=== PATIENT | female | born 1940 | race Caucasian/White ===

== ENCOUNTER 2020-08-11 15:47 | Emergency (ER) | payer OTHER, MEDICARE ==
[~2020-08-11 15:47] MED LIST: ACETAMINOPHEN325 MG PO; ADVIL200 MG PO; ALTACE10 MG PO; AMBIEN5 MG PO; ASPIRIN CHEWABL81 MG PO; CERTAGEN1 EACH PO; COLACE100 MG PO; FEOSOL325 MG PO; LIPITOR20 MG PO; NEURONTIN300 M1 PO; NORCO 10-325 T1 EACH PO; NORVASC5 MG PO; OXYGEN; PANTOPRAZOLE SO40 MG PO; PAXIL20 MG PO; PLAVIX75 MG PO; RANEXA500 MG PO; SENOKOT-S TABL1 EACH PO; SEROQUEL 25MG T25 MG PO; SYNTHROID50 MCG PO; TOPROL XL 50 MG50 MG PO; VENTOLIN HFA IN18 GM INH; VITAMIN D2000 UNI1 PO
== END 2020-08-11 19:15 | disposition home or self-care (01) ==
LOC: FER 15:47
DX: S00.03XA Contusion of scalp, initial encounter (principal); S80.812A Abrasion, left lower leg, initial encounter; R07.9 Chest pain, unspecified; I10 Essential (primary) hypertension; Z79.82 Long term (current) use of aspirin; Z79.899 Other long term (current) drug therapy; V49.50XA Passenger injured in collision with unspecified motor vehicles in traffic accident, initial encounter; Y92.410 Unspecified street and highway as the place of occurrence of the external cause; Z23 Encounter for immunization
CPT/HCPCS: 70450; 71045; 72125; 73590; 90471; 90714; 93005